=== PATIENT | female | born 1985 | race Caucasian/White ===

== ENCOUNTER 2018-03-20 15:26 | Emergency (ER) | payer BC ==
--- NOTE | 2018-03-20 15:29 | EDM.PDOC ---
ED HPI GENERAL MEDICAL PROBLEM - General Chief Complaint: BACKHOE OPERATOR Problem Stated Complaint: 7 WEEKS PREG. SPOTTING Time Seen by Provider: 03/20/18 15:28 Source of Information: Reports: Patient History Limitations: Reports: No Limitations - History of Present Illness INITIAL COMMENTS - FREE TEXT/NARRATIVE: HISTORY AND PHYSICAL: History of present illness: Patient is a 32-year-old female who presents to the emergency room with complaints of lower abdominal cramping and vaginal bleeding. She states she is approximately weeks and has been following with a provider in [place]. She initially had tried in vitro fertilization, unsuccessful. She did get naturally with her last menstrual period being in January. She does have an initial OB appointment with Dr. Buckley in one week. She states she has had this light spotting over the past days and today seemed heavier and the low abdominal cramping more intense. She denies any recent pelvic activity. Denies any fever, chills, chest pain, shortness of breath or cough. Denies any abdominal pain, vomiting, diarrhea, constipation or dysuria. She has been eating and drinking appropriately. 1, para 0. Review of systems: As per history of present illness and below otherwise all systems reviewed and negative. Past medical history: As per history of present illness and as reviewed below otherwise noncontributory. Surgical history: As per history of present illness and as reviewed below otherwise noncontributory. Social history: See social history for further information Family history: As per history of present illness and as reviewed below otherwise noncontributory. Physical exam: General: Well-developed and well-nourished 32-year-old female. Alert and oriented. Nontoxic appearing and in no acute distress. HEENT: Atraumatic, normocephalic, pupils equal and reactive bilaterally, negative for conjunctival pallor or scleral icterus, mucous membranes moist, TMs normal bilaterally, throat clear, neck supple, nontender, trachea midline. No drooling or trismus noted. No meningeal signs. No hot potato voice noted. Lungs: Clear to auscultation, breath sounds equal bilaterally, chest nontender. Heart: S1S2, regular rate and rhythm without overt murmur Abdomen: Soft, nondistended, mild tenderness to the low abdomen. Negative for masses or hepatosplenomegaly. Negative for costovertebral tenderness. Pelvis: Stable nontender. Genitourinary: This was explained to the patient prior to performing pelvic exam , and sent obtained. International Recruiter at the bedside. External genitalia within normal limits. There is a brown opaque discharge in the vaginal canal. Cervical os is closed. No bleeding noted. Patient tolerated exam well. Rectal: Deferred. Skin: Intact, warm, dry. No lesions or rashes noted. Extremities: Atraumatic, negative for cords or calf pain. Neurovascular unremarkable. Neuro: Awake, alert, oriented. Cranial nerves II through XII unremarkable. Cerebellum unremarkable. Motor and sensory unremarkable throughout. Exam nonfocal. Notes: Patient does have yeast in the urine; will do a swap during pelvic exam. Blood type A negative. Ultrasound shows a single live IUP with the gestational age 7 weeks and 5 days. heart rate 147/m. No wilton-gestational fluid collection. Blood flow to both ovaries. Dr. Buckley, BACKHOE OPERATOR on-call was consulted on this patient. Patient does have an appointment to see her on Wednesday. Dr. Buckley is aware of testing results. Requests RhoGam and Terconazol suppository for her yeast. She states the clinic will call her tomorrow for further follow-up. She does not want follow-up labs at this time as they will do these in the clinic next week. Patient is aware of all testing results. Discussed with appropriate follow-up with her primary BACKHOE OPERATOR. She voices understanding and is agreeable to plan of care. Denies any further questions or concerns at this time. Diagnostics: CBC, CMP, hCG U, quantitative hCG, UA, AB/Rh, OB ultrasound Therapeutics: RhoGam IM Prescription: Terconazole Suppos Augmentin Impression: Threatened miscarriage in early UTI Vaginal Candidiasis Plan: 1. Pelvic rest until cleared by your BACKHOE OPERATOR. 2. Tylenol as needed for pain management. Increase your oral fluids. Take the Terconazole suppository, 1 tab in the vagina before bed 3 days. The oral antibiotic for urinary tract infection is twice daily x 7 days. 3. [facility] will call you on Wednesday for follow-up. Please return to the ED as needed and as discussed. Definitive disposition and diagnosis as appropriate pending reevaluation and review of above. Onset: Today Duration: Day(s): Location: Reports: Pelvis Pelvic Pain Score (Numeric/FACES): 2 - Related Data Allergies Allergy/AdvReac Type Severity Reaction Status Date / Time latex Allergy Rash Verified 03/20/18 15:39 Home Meds: Home Meds . [No Known Home Meds] 03/20/18 [History] ED ROS GENERAL - Review of Systems Review Of Systems: ROS reveals no pertinent complaints other than HPI. ED EXAM - Physical Exam Exam: See Below (See dictation) Course - Vital Signs Last Recorded V/S: Last Vital Signs Temp 97.5 F 03/20/18 15:36 Pulse 90 03/20/18 15:36 Resp 18 03/20/18 15:36 BP 142/97 H 03/20/18 15:36 Pulse Ox 99 03/20/18 15:36 - Orders/Labs/Meds Orders: Active Orders 24 hr Category Date Time Status ABO/RH TYPE [BBK] Stat Lab 03/20/18 15:38 Results ANTIBODY SCREEN (WEST) [BBK] Stat Lab 03/20/18 15:38 Results CULTURE URINE [RM] Stat Lab 03/20/18 15:35 Received RH IMMUNE GLOBULIN [BBK] Stat Lab 03/20/18 15:38 Results Labs: Laboratory Tests 03/20/18 03/20/18 03/20/18 Range/Units 15:35 15:38 15:38 WBC 8.74 (4.0-11.0) K/uL RBC 4.39 (4.30-5.90) M/uL Hgb 13.1 (12.0-16.0) g/dL Hct 38.0 (36.0-46.0) % MCV 86.6 (80.0-98.0) fL MCH 29.8 (27.0-32.0) pg MCHC 34.5 (31.0-37.0) g/dL RDW Std Deviation 39.6 (28.0-62.0) fl RDW Coeff of Sharmila 12 (11.0-15.0) % Plt Count 229 (150-400) K/uL MPV 10.90 (7.40-12.00) fL Neut % (Auto) 65.8 (48.0-80.0) % Lymph % (Auto) 27.6 (16.0-40.0) % [place] % (Auto) 5.3 (0.0-15.0) % Eos % (Auto) 0.8 (0.0-7.0) % Baso % (Auto) 0.5 (0.0-1.5) % Neut # (Auto) 5.8 H (1.4-5.7) K/uL Lymph # (Auto) 2.4 (0.6-2.4) K/uL [place] # (Auto) 0.5 (0.0-0.8) K/uL Eos # (Auto) 0.1 (0.0-0.7) K/uL Baso # (Auto) 0.0 (0.0-0.1) K/uL Nucleated RBC % 0.0 /100WBC Nucleated RBCs # 0 K/uL Sodium 135 L (136-145) mmol/L Potassium 4.1 (3.5-5.1) mmol/L Chloride 102 (98-107) mmol/L Carbon Dioxide 22.8 (21.0-32.0) mmol/L BUN 9 (7.0-18.0) mg/dL Creatinine 0.7 (0.6-1.0) mg/dL Est Cr Clr Drug Dosing 101.90 mL/min Estimated GFR (MDRD) > 60.0 ml/min Glucose 96 (74-106) mg/dL Calcium 9.5 (8.5-10.1) mg/dL Total Bilirubin 0.3 (0.2-1.0) mg/dL AST 17 (15-37) IU/L ALT 35 (14-63) IU/L Alkaline Phosphatase 48 (46-116) U/L Total Protein 8.0 (6.4-8.2) g/dL Albumin 4.0 (3.4-5.0) g/dL Globulin 4.0 (2.6-4.0) g/dL Albumin/Globulin Ratio 1.0 (0.9-1.6) HCG, Quant 429122.0 mIU/mL Urine Color YELLOW Urine Appearance CLEAR Urine pH 6.5 (5.0-8.0) Ur Specific Success 1.010 (1.001-1.035) Urine Protein NEGATIVE (NEGATIVE) mg/dL Urine Glucose (UA) NEGATIVE (NEGATIVE) mg/dL Urine Ketones NEGATIVE (NEGATIVE) mg/dL Urine Occult Blood MODERATE H (NEGATIVE) Urine Nitrite NEGATIVE (NEGATIVE) Urine Bilirubin NEGATIVE (NEGATIVE) Urine Urobilinogen 0.2 (<2.0) EU/dL Ur Leukocyte Esterase SMALL H (NEGATIVE) Urine RBC 1-2 (0-2/HPF) Urine WBC 5-7 (0-5/HPF) Ur Epithelial Cells MODERATE (NONE-FEW) Urine Bacteria FEW (NEGATIVE) Urine Yeast MANY Lisa species DNA (NEGATIVE) Gardnerella DNA Probe (NEGATIVE) Trichomonas DNA Probe (NEGATIVE) Blood Type Antibody Screen 03/20/18 03/20/18 Range/Units 15:38 16:52 WBC (4.0-11.0) K/uL RBC (4.30-5.90) M/uL Hgb (12.0-16.0) g/dL Hct (36.0-46.0) % MCV (80.0-98.0) fL MCH (27.0-32.0) pg MCHC (31.0-37.0) g/dL RDW Std Deviation (28.0-62.0) fl RDW Coeff of Sharmila (11.0-15.0) % Plt Count (150-400) K/uL MPV (7.40-12.00) fL Neut % (Auto) (48.0-80.0) % Lymph % (Auto) (16.0-40.0) % [place] % (Auto) (0.0-15.0) % Eos % (Auto) (0.0-7.0) % Baso % (Auto) (0.0-1.5) % Neut # (Auto) (1.4-5.7) K/uL Lymph # (Auto) (0.6-2.4) K/uL [place] # (Auto) (0.0-0.8) K/uL Eos # (Auto) (0.0-0.7) K/uL Baso # (Auto) (0.0-0.1) K/uL Nucleated RBC % /100WBC Nucleated RBCs # K/uL Sodium (136-145) mmol/L Potassium (3.5-5.1) mmol/L Chloride (98-107) mmol/L Carbon Dioxide (21.0-32.0) mmol/L BUN (7.0-18.0) mg/dL Creatinine (0.6-1.0) mg/dL Est Cr Clr Drug Dosing mL/min Estimated GFR (MDRD) ml/min Glucose (74-106) mg/dL Calcium (8.5-10.1) mg/dL Total Bilirubin (0.2-1.0) mg/dL AST (15-37) IU/L ALT (14-63) IU/L Alkaline Phosphatase (46-116) U/L Total Protein (6.4-8.2) g/dL Albumin (3.4-5.0) g/dL Globulin (2.6-4.0) g/dL Albumin/Globulin Ratio (0.9-1.6) HCG, Quant mIU/mL Urine Color Urine Appearance Urine pH (5.0-8.0) Ur Specific Success (1.001-1.035) Urine Protein (NEGATIVE) mg/dL Urine Glucose (UA) (NEGATIVE) mg/dL Urine Ketones (NEGATIVE) mg/dL Urine Occult Blood (NEGATIVE) Urine Nitrite (NEGATIVE) Urine Bilirubin (NEGATIVE) Urine Urobilinogen (<2.0) EU/dL Ur Leukocyte Esterase (NEGATIVE) Urine RBC (0-2/HPF) Urine WBC (0-5/HPF) Ur Epithelial Cells (NONE-FEW) Urine Bacteria (NEGATIVE) Urine Yeast Lisa species DNA POSITIVE H (NEGATIVE) Gardnerella DNA Probe NEGATIVE (NEGATIVE) Trichomonas DNA Probe NEGATIVE (NEGATIVE) Blood Type A NEGATIVE Antibody Screen NEGATIVE Meds: Medications Discontinued Medications Generic Name Dose Route Start Last Admin Trade Name Freq PRN Reason Stop Dose Admin Amoxicillin/Clavulanate Potassium 1 tab 03/20/18 18:07 Augmentin 500 Mg\125 Mg PO 03/20/18 18:08 ONETIME ONE Rho Immune Globulin 300 mcg 03/20/18 17:04 Rhophylac IM 03/20/18 17:05 ONETIME ONE Departure - Departure Time of Disposition: 18:12 Disposition: Home, Self-Care 01 Clinical Impression: Threatened , Candidiasis, vagina Urinary tract infection Qualifiers: Urinary tract infection type: acute cystitis Hematuria presence: without hematuria Qualified Code(s): N30.00 - Acute cystitis without hematuria - Discharge Information Instructions: Vaginal Yeast Infection, Adult, and Urinary Tract Infection, Threatened Miscarriage, [id number] Referrals: PCP,None [Primary Care Provider] - Forms: ED Department Discharge Additional Instructions: The following information is given to patients seen in the emergency department who are being discharged to home. This information is to outline your options for follow-up care. We provide all patients seen in our emergency department with a follow-up referral. The need for follow-up, as well as the timing and circumstances, are variable depending upon the specifics of your emergency department visit. If you don't have a primary care physician on staff, we will provide you with a referral. We always advise you to contact your personal physician following an emergency department visit to inform them of the circumstance of the visit and for follow-up with them and/or the need for any referrals to a consulting specialist. The emergency department will also refer you to a specialist when appropriate. This referral assures that you have the opportunity for follow-up care with a specialist. All of these measure are taken in an effort to provide you with optimal care, which includes your follow-up. Under all circumstances we always encourage you to contact your private physician who remains a resource for coordinating your care. When calling for follow-up care, please make the office aware that this follow-up is from your recent emergency room visit. If for any reason you are refused follow-up, please contact the Emergency Department at and asked to speak to the emergency department charge nurse. Primary Care [address] [place] [id number] [facility] [address] [place] [phone] [facility] [address] [place] [id number] 1. Pelvic rest until cleared by your BACKHOE OPERATOR. 2. Tylenol as needed for pain management. Increase your oral fluids. Take the Terconazole suppository, 1 tab in the vagina before bed 3 days. The oral antibiotic for urinary tract infection is twice daily x 7 days. 3. [facility] will call you on Wednesday for follow-up. Please return to the ED as needed and as discussed. - My Orders Last 24 Hours: My Active Orders 03/20/18 15:35 CULTURE URINE [RM] Stat 03/20/18 15:38 ABO/RH TYPE [BBK] Stat ANTIBODY SCREEN (WEST) [BBK] Stat RH IMMUNE GLOBULIN [BBK] Stat - Assessment/Plan Last 24 Hours: My Active Orders 03/20/18 15:35 CULTURE URINE [RM] Stat 03/20/18 15:38 ABO/RH TYPE [BBK] Stat ANTIBODY SCREEN (WEST) [BBK] Stat RH IMMUNE GLOBULIN [BBK] Stat
[2018-03-20 16:25] LABS: CHLORIDE,CL 102 mmol/L (98-107); SODIUM,NA 135 mmol/L (136-145)
--- NOTE | 2018-03-20 16:53 | US ---
HISTORY: Vaginal bleeding and pelvic cramping. First trimester . TECHNIQUE: Ultrasound of the pelvis using transabdominal and transvaginal techniques. Color and spectral Doppler evaluation of both ovaries. COMPARISON: None. FINDINGS: Single intrauterine gestational sac. Mean sac diameter of 25 mm corresponds to estimated gestational age 7 weeks 5 days. pole within the gestational sac. Revillo-rump length of 10 mm corresponds to estimated gestational age 7 weeks 0 days. cardiac activity is present with heart rate of 147 beats per minute. 2 mm yolk sac. No perigestational fluid collection. Right ovary measures 4.6 x 3.9 x 3.7 cm. 4.3 x 3.4 x 3.8 cm anechoic cyst in the right ovary. Blood flow present in the right ovary with normal arterial and venous spectral Doppler waveforms. Left ovary measures 3.4 x 1.9 x 2.3 cm. 2 x 1.6 x 1.9 cm corpus luteum cyst in the left ovary. Blood flow present in the left ovary with normal arterial and venous spectral Doppler waveforms. IMPRESSION: 1. Single live intrauterine gestation with estimated gestational age 7 weeks 0 days. 2. No perigestational fluid collection. 3. Blood flow present in both ovaries. Dictated by Matt Brasher MD @ Mar 20 2018 4:48PM Signed by Dr. Matt Brasher @ Mar 20 2018 4:53PM
[2018-03-20] MEDS ORDERED: Amoxicillin/Clavulanate K 500-125 MG Tab PO ONE (18:07)
[2018-03-20] MEDS: Rho(D) Immune Globulin 300 MCG/2 ML Syringe IM ONE ×2 (18:43→18:45)
== END 2018-03-20 18:55 | disposition home or self-care (01) ==
LOC: MW.ED 15:26
DX: O20.0 Threatened abortion (principal); O23.41 Unspecified infection of urinary tract in pregnancy, first trimester; O98.811 Other maternal infectious and parasitic diseases complicating pregnancy, first trimester; Z3A.01 Less than 8 weeks gestation of pregnancy; N93.9 Abnormal uterine and vaginal bleeding, unspecified; B37.3 Candidiasis of vulva and vagina
CPT/HCPCS: 36415; 76801; 80053; 81001; 84702; 85025; 86850; 86900; 86901; 87086; 87480; 87510; 87660; 99284; A9270; J2792; J2791

== ENCOUNTER 2018-11-05 03:28 | Inpatient (IN) | payer BC ==
[2018-11-05] MEDS ORDERED: Sodium Chloride 0.9% 10 ML SDV IV PRN (07:36)
[2018-11-05] MEDS ORDERED: Methylergonovine 0.2 MG/1 ML Amp IM PRN (07:36)
[2018-11-05] MEDS ORDERED: Lidocaine 1% 50 ML MDV INJECT PRN (07:36)
[2018-11-05] MEDS ORDERED: Butorphanol 1 MG/ML SDV IVPUSH PRN (07:36)
[2018-11-05] MEDS ORDERED: Nalbuphine 10 MG/1 ML Vial IVPUSH PRN (07:36)
[2018-11-05] MEDS ORDERED: Sodium Chloride 0.9% 10 ML Syringe FLUSH PRN (07:36)
[2018-11-05] MEDS ORDERED: Sodium Chloride 0.9% 2.5 ML Syringe FLUSH PRN (07:36)
[2018-11-05] MEDS ORDERED: Carboprost Tromethamine 250 MCG/1 ML Amp IM PRN (07:36)
[2018-11-05] MEDS ORDERED: Tranexamic Acid 1,000 MG in Sodium Chloride 0.9% 100 ML IV PRN (07:36)
[2018-11-05] MEDS ORDERED: Ondansetron 4 MG/2 ML SDV IVPUSH PRN (07:36)
[2018-11-05] MEDS ORDERED: Misoprostol 200 MCG Tab PO PRN (07:36)
[2018-11-05] MEDS ORDERED: Water For Irrigation,Sterile 1,000 ML Container IRR PRN (07:36)
[2018-11-05] MEDS ORDERED: Oxytocin/0.9 % Sodium Chloride 30 UNIT/500 ML BAG IV SCH ×2 (07:45→13:30)
[2018-11-05] MEDS: Lactated Ringers 1,000 ML IV SCH ×4 (08:12→15:25)
--- NOTE | 2018-11-05 09:40 | PCM.PREANE ---
Preanesthetic Assessment - Anesthesia/Transfusion/Family Hx Anesthesia History: No Prior Anesthesia Family History of Anesthesia Reaction: No - Physical Assessment ASA Class: 1 Mental Status: Alert & Oriented x3 Dentition: Reports: Normal Dentition - Lab Values: Laboratory Last Values WBC 14.11 K/uL (4.0-11.0) H 11/05/18 07:58 RBC 3.89 M/uL (4.30-5.90) L 11/05/18 07:58 Hgb 12.2 g/dL (12.0-16.0) 11/05/18 07:58 Hct 35.6 % (36.0-46.0) L 11/05/18 07:58 MCV 91.5 fL (80.0-98.0) 11/05/18 07:58 MCH 31.4 pg (27.0-32.0) 11/05/18 07:58 MCHC 34.3 g/dL (31.0-37.0) 11/05/18 07:58 RDW Std Deviation 45.8 fl (28.0-62.0) 11/05/18 07:58 RDW Coeff of Sharmila 14 % (11.0-15.0) 11/05/18 07:58 Plt Count 211 K/uL (150-400) 11/05/18 07:58 MPV 12.40 fL (7.40-12.00) H 11/05/18 07:58 Nucleated RBC % 0.0 /100WBC 11/05/18 07:58 Nucleated RBCs # 0 K/uL 11/05/18 07:58 - Allergies Allergies/Adverse Reactions: Allergies Allergy/AdvReac Type Severity Reaction Status Date / Time latex Allergy Rash Verified 03/20/18 15:39 - Acknowledgements Anesthesia Type Planned: Epidural Pt an Appropriate Candidate for the Planned Anesthesia: Yes Alternatives and Risks of Anesthesia Discussed w Pt/Guardian: Yes Pt/Guardian Understands and Agrees with Anesthesia Plan: Yes PreAnesthesia Questionnaire GEOSPATIAL ANALYST History: Reports: Other (See Below) Other OB/BYN History: IVF - Infectious Disease History Infectious Disease History: Reports: Chicken Pox - HOME MEDS Home Medications: Home Meds . [No Known Home Meds] 03/20/18 [History] - CURRENT (IN HOUSE) MEDS Current Meds: Current Medications Butorphanol Tartrate (Stadol) 1 mg IVPUSH Q1H PRN PRN Reason: Pain Carboprost Tromethamine (Hemabate Ds) 250 mcg IM ASDIRECTED PRN PRN Reason: Post Hemorrhage Tranexamic Acid 1,000 mg/ (Sodium Chloride) 110 mls @ 660 mls/hr IV ONETIME PRN PRN Reason: Bleeding Lactated Ringer's (Ringers, Lactated) 1,000 mls @ 150 mls/hr IV ASDIRECTED [facility] Last Admin: 11/05/18 09:14 Dose: 999 mls/hr Oxytocin/Sodium Chloride (Oxytocin 30 Unit/500 Ml-Ns) 30 unit in 500 mls @ 999 mls/hr IV TITRATE [facility] Lidocaine HCl (Xylocaine 1%) 50 ml INJECT ONETIME PRN PRN Reason: Laceration repair Methylergonovine Maleate (Methergine) 0.2 mg IM ASDIRECTED PRN PRN Reason: Post Hemorrhage Misoprostol (Cytotec) 200 mcg PO ONETIME PRN PRN Reason: Post Hemorrhage Nalbuphine HCl (Nubain) 10 mg IVPUSH Q1H PRN PRN Reason: Pain (severe 7-10) Ondansetron HCl (Zofran) 4 mg IVPUSH Q6H PRN PRN Reason: Nausea/Vomiting Sodium Chloride (Saline Flush) 10 ml FLUSH ASDIRECTED PRN PRN Reason: Keep Vein Open Sodium Chloride (Saline Flush) 2.5 ml FLUSH ASDIRECTED PRN PRN Reason: Keep Vein Open Sodium Chloride (Normal Saline) 10 ml IV ASDIRECTED PRN PRN Reason: IV Use Sterile Water (Sterile Water For Irrigation) 1,000 ml IRR ASDIRECTED PRN PRN Reason: delivery
--- NOTE | 2018-11-05 09:44 | PCM.PRNOTE ---
- Free Text/Narrative Note: Anes Note Patietn requests epidural for L&D. Sitting position. Level L3-L4. Chloraprep to lumbar area. Midline approach. Epidural space easily achieved single attempt with ease. STEPHEN at 4 cm. Cath threaded 5 cm with ease. Test dose 0917 3 cc 1.5% selwyn with epi negative Loading dose 0919 10 cc 0.2% ropivicaine with 1 mcg cc fentanyl in slow divided doses. Pump started 0922 same solution at 8 cc hr with 6 cc q 20 min prn bolus. Time with patient [id number] Shon Gonzales CRNA
[2018-11-05] MEDS ORDERED: Aluminum Hydroxide/Magnesium Hydroxide/Simethicone Susp 30 ML Cup PO PRN (18:16)
[2018-11-05] MEDS ORDERED: Ibuprofen 400 MG Tab PO PRN (18:16)
[2018-11-05] MEDS ORDERED: Lanolin 100% Cream 7 GM Tube TOP PRN (18:16)
[2018-11-05] MEDS ORDERED: Acetaminophen 500 MG Tab PO PRN ×2 (18:16)
[2018-11-05] MEDS ORDERED: Benzocaine/Menthol 20%-0.5% Spray 78 GM Cannister TOP PRN (18:16)
[2018-11-05] MEDS ORDERED: Bisacodyl 10 MG Supp RECTAL PRN (18:16)
[2018-11-05] MEDS ORDERED: oxyCODONE 5 MG Tab PO PRN (18:16)
[2018-11-05] MEDS ORDERED: Docusate Sodium 100 MG Cap PO PRN (18:16)
--- NOTE | 2018-11-06 00:52 | OR ---
SURGEON: Rosario Buckley M.D. DATE OF PROCEDURE: 11/05/2018 PREOPERATIVE DIAGNOSES: 1. 39 and 6 week intrauterine . 2. Labor. 3. Abnormal heart tones. POSTOPERATIVE DIAGNOSES: 1. 39 and 6 week intrauterine . 2. Labor. 3. Abnormal heart tones. PROCEDURES PERFORMED: Vacuum-assisted vaginal delivery, second-degree midline laceration repaired. PRIMARY SURGEON: Rosario Buckley MD. FILM HISTORIAN: Stanislaw Benton MS4. ANESTHESIA: Epidural. ESTIMATED BLOOD LOSS: 400 mL. COMPLICATIONS: None. FINDINGS: Viable male. 7 at 1 minute, and 9 at 5 minutes. Weight of 7 pounds 12 ounces. Spontaneous delivery, intact placenta, 3-vessel cord. DISPOSITION: to nursery, mom in LDRP, stable. PROCEDURE DETAILS: Shari is a 32-year-old G1, P0 at 39 and 6 weeks' gestational age, who was admitted on the morning of 11/05/2018 with regular contractions. She did make cervical change from 2 to 3 cm to 4 cm upon monitoring. Upon admission, patient had underwent routine labs, IV hydration, underwent amniotomy. Clear fluid was returned after she had her bright light exam. She had been on valacyclovir prophylaxis since 34 weeks. She denies any prodromal herpetic symptoms and no active herpetic lesions were visualized on her bright light exam of the vulva. After amniotomy was performed which returned clear fluid, the patient became increasingly uncomfortable and underwent regional anesthesia from epidural. At that time, she was found to be approximately 7 cm dilated, became more comfortable; however, the contractions did significantly space out to approximately every 6 to 8 minutes making really no cervical change. Therefore, a Pitocin augmentation was administered. During this time interval, patient began having some episodes of recurrent decelerations, at times prolonged decelerations . Did respond to repositioning, oxygen administration, IV fluid hydration with discontinuation of Pitocin. An IUPC was placed and FSE was placed. Joiner had been placed to gravity. With recovery, was able to resume Pitocin and the patient actually began making more rapid change thereafter. Was able to progress to complete, 100% effaced and +2 station, began pushing efforts on the left and right lateral side. Once to a +3 station, was able to be in modified dorsal lithotomy position. However, there was still variable decelerations to the 60s to 70s with pushing efforts. With slow return to baseline, I shifted the baseline to the 150s from the 140s. Given these prolonged variable decelerations with slow return to baseline, discussed operative vaginal delivery with the patient. Jluis has been performed, which is approximately 3500 g, cephalic presentation with AFSHIN position. Sagittal sutures were able to be palpated. The bladder is drained. The risks of the procedure have been discussed with the patient and her , including increased risk for maternal vaginal trauma, cephalohematoma, and intracranial bleeding. They voiced understanding and they agreed to proceed with operative vaginal delivery. Carton Filling Machine Operator and nursing food checkers and cashiers supervisor have been notified. Respiratory Therapy was also present for delivery. I was able to palpate suture lines once again, placed the vacuum keeping these in mind, and with the next contraction was able to insufflate the vacuum to the green zone and assisted with pushing efforts. The vacuum was released between contractions. With the next contraction, was able to push. There was a single pop-off that occurred. The head was delivered to a +4 station. Vacuum was released. Head was delivered followed by anterior shoulder, posterior shoulder, remainder of body. There was a loose nuchal cord x1 noted, this was reduced manually. The infant's oropharynx and nares bulb suctioned. was crying and was able to be handed off to mother with attending physician and nursing staff at her side. After delay, cord was clamped x2 and cut. Cord arterial, cord venous, cord blood sampling were obtained. Light pressure applied while the placenta was delivered spontaneously intact. Vigorous fundal uterine massage was then applied while 30 units of Pitocin was delivered in 500 mL of IV fluid. Upon inspection of cervix, vaginal sidewalls, and perineum, there was found to be a deep second-degree midline laceration present. The deeper edges are repaired using 3-0 Vicryl with [id number] sutures x3, followed by repair of the remainder of the second-degree midline laceration in the usual fashion. Uterus remained firm. Sponge, instrument, and needle counts was correct. The patient remained in LDRP, in nursery. GIULIANA / CHANDAN /[id number]
[2018-11-06] MEDS: Ibuprofen 800 MG Tab PO PRN ×2 (02:37→14:55)
[2018-11-06] MEDS: Witch Hazel Medicated Pads 40/Jar TOP PRN (02:39)
--- NOTE | 2018-11-06 07:28 | PCM.POSTAN ---
POST ANESTHESIA ASSESSMENT - MENTAL STATUS Mental Status: Alert - VITAL SIGNS Vital Signs: Last Vital Signs Temp 36.4 C 11/06/18 04:50 Pulse 70 11/06/18 04:50 Resp 17 11/06/18 04:50 BP 109/63 11/06/18 04:50 Pulse Ox 99 11/06/18 04:50 - RESPIRATORY Respiratory Status: Respiratory Rate WNL - CARDIOVASCULAR CV Status: Pulse Rate WNL - GASTROINTESTINAL GI Status: No Symptoms - POST OP HYDRATION Hydration Status: Adequate & Stable
--- NOTE | 2018-11-06 07:28 | PCM48HPAN ---
Post Anesthesia Note - EVALUATION WITHIN 48HRS OF ANESTHETIC Vital Signs in Normal Range: Yes Patient Participated in Evaluation: Yes Respiratory Function Stable: Yes Airway Patent: Yes Cardiovascular Function Stable: Yes Hydration Status Stable: Yes Pain Control Satisfactory: Yes Nausea and Vomiting Control Satisfactory: Yes Mental Status Recovered: Yes Vital Signs: Last Vital Signs Temp 36.4 C 11/06/18 04:50 Pulse 70 11/06/18 04:50 Resp 17 11/06/18 04:50 BP 109/63 11/06/18 04:50 Pulse Ox 99 11/06/18 04:50
--- NOTE | 2018-11-06 10:14 | PCM.PNPP ---
- General Info Date of Service: 11/06/18 Functional Status: Reports: Pain Controlled, Tolerating Diet, Ambulating, Urinating - Review of Systems General: Reports: Fatigue. Denies: Fever, Weakness Pulmonary: Denies: Shortness of Breath Cardiovascular: Denies: Chest Pain, Palpitations, Lightheadedness Gastrointestinal: Denies: Abdominal Pain, Nausea, Vomiting Genitourinary: Denies: Flank Pain Musculoskeletal: Reports: No Symptoms Skin: Reports: No Symptoms Neurological: Reports: No Symptoms Psychiatric: Reports: No Symptoms - General Info Date of Service: 11/06/18 - Patient Data Vital Signs - Most Recent: Last Vital Signs Temp 36.4 C 11/06/18 04:50 Pulse 70 11/06/18 04:50 Resp 17 11/06/18 04:50 BP 109/63 11/06/18 04:50 Pulse Ox 99 11/06/18 04:50 Lab Results - Last 24 Hours: Laboratory Results - last 24 hr 11/05/18 11/05/18 11/06/18 Range/Units 07:58 17:55 06:15 Hgb 9.2 L (12.0-16.0) g/dL Hct 26.7 L (36.0-46.0) % Cord ABG pH 7.211 (7.18-7.38) Cord ABG Base Excess -9 (-10--2) Cord VBG pH 7.330 (7.25-7.45) Cord VBG Base Excess -8 (-10--2) Blood Type A NEGATIVE Antibody Screen NEGATIVE Med Orders - Current: Current Medications Acetaminophen (Tylenol Extra Strength) 500 mg PO Q4H PRN PRN Reason: Pain Acetaminophen (Tylenol Extra Strength) 1,000 mg PO Q4H PRN PRN Reason: Pain Last Admin: 11/06/18 02:38 Dose: 1,000 mg Al Hydroxide/Mg Hydroxide (Mag-Al Plus) 30 ml PO Q8H PRN PRN Reason: Heartburn Benzocaine/Menthol (Dermoplast Pain Relief 20%-0.5% [place]) 0 gm TOP ASDIRECTED PRN PRN Reason: Perineal Comfort Measure Last Admin: 11/06/18 02:38 Dose: 1 spray Bisacodyl (Dulcolax) 10 mg RECTAL ONETIME PRN PRN Reason: Constipation Carboprost Tromethamine (Hemabate Ds) 250 mcg IM ASDIRECTED PRN PRN Reason: Post Hemorrhage Docusate Sodium (Colace) 100 mg PO BID PRN PRN Reason: Constipation Emollient Ointment (Lansinoh Hpa) 0 gm TOP ASDIRECTED PRN PRN Reason: Sore Nipples Tranexamic Acid 1,000 mg/ (Sodium Chloride) 110 mls @ 660 mls/hr IV ONETIME PRN PRN Reason: Bleeding Lactated Ringer's (Ringers, Lactated) 1,000 mls @ 150 mls/hr IV ASDIRECTED TAN Last Admin: 11/05/18 15:25 Dose: 150 mls/hr Oxytocin/Sodium Chloride (Oxytocin 30 Unit/500 Ml-Ns) 30 unit in 500 mls @ 999 mls/hr IV TITRATE TAN Oxytocin/Sodium Chloride (Oxytocin 30 Unit/500 Ml-Ns) 30 unit in 500 mls @ 2 mls/hr IV TITRATE TAN; Protocol Last Infusion: 11/05/18 17:06 Dose: 3 munits/min, 3 mls/hr Ibuprofen (Motrin) 400 mg PO Q4H PRN PRN Reason: Pain Ibuprofen (Motrin) 800 mg PO Q6H PRN PRN Reason: Pain Last Admin: 11/06/18 02:37 Dose: 800 mg Lidocaine HCl (Xylocaine 1%) 50 ml INJECT ONETIME PRN PRN Reason: Laceration repair Methylergonovine Maleate (Methergine) 0.2 mg IM ASDIRECTED PRN PRN Reason: Post Hemorrhage Nalbuphine HCl (Nubain) 10 mg IVPUSH Q1H PRN PRN Reason: Pain (severe 7-10) Ondansetron HCl (Zofran) 4 mg IVPUSH Q6H PRN PRN Reason: Nausea/Vomiting Oxycodone HCl (Oxycodone) 5 mg PO Q2H PRN PRN Reason: Pain Sodium Chloride (Saline Flush) 10 ml FLUSH ASDIRECTED PRN PRN Reason: Keep Vein Open Sodium Chloride (Saline Flush) 2.5 ml FLUSH ASDIRECTED PRN PRN Reason: Keep Vein Open Sodium Chloride (Normal Saline) 10 ml IV ASDIRECTED PRN PRN Reason: IV Use Sterile Water (Sterile Water For Irrigation) 1,000 ml IRR ASDIRECTED PRN PRN Reason: delivery Witch Rand (Tucks) 1 pad TOP ASDIRECTED PRN PRN Reason: comfort care Last Admin: 11/06/18 02:39 Dose: 1 pad Discontinued Medications Butorphanol Tartrate (Stadol) 1 mg IVPUSH Q1H PRN PRN Reason: Pain Misoprostol (Cytotec) 200 mcg PO ONETIME PRN PRN Reason: Post Hemorrhage - Infant Interaction Support Person: - Exam General: Alert, Oriented Lungs: Normal Respiratory Effort Cardiovascular: Regular Rate, Regular Rhythm GI/Abdominal Exam: Soft, Non-Tender Extremities: Pedal Edema (trace). No: Park's Sign Skin: Warm, Dry, Intact Neurological: No New Focal Deficit Psy/Mental Status: Alert, Normal Affect, Normal Mood - Problem List & Annotations (1) Vaginal delivery SNOMED Code(s): 974101878 Code(s): O80 - ENCOUNTER FOR FULL-TERM UNCOMPLICATED DELIVERY Status: Acute Current Visit: Yes - Problem List Review Problem List Initiated/Reviewed/Updated: Yes - My Orders Last 24 Hours: My Active Orders 11/05/18 13:30 Oxytocin/0.9 % Sodium Chloride [Oxytocin 30 Unit/500 ML-NS] 30 unit in 500 ml IV TITRATE 11/05/18 18:16 Patient Status [ADT] Routine May Shower [RC] ASDIRECTED Up ad Sandhya [RC] ASDIRECTED Vital Signs [RC] PER UNIT ROUTINE Acetaminophen [Tylenol Extra Strength] 1,000 mg PO Q4H PRN Acetaminophen [Tylenol Extra Strength] 500 mg PO Q4H PRN Alum Hydrox/Mag Hydrox/Simeth [Mag-Al Plus] 30 ml PO Q8H PRN Benzocaine/Menthol [Dermoplast Pain Relief 20%-0.5% [place]] 0 gm TOP ASDIRECTED PRN Bisacodyl [Dulcolax] 10 mg RECTAL ONETIME PRN Docusate Sodium [Colace] 100 mg PO BID PRN Ibuprofen [Motrin] 400 mg PO Q4H PRN Ibuprofen [Motrin] 800 mg PO Q6H PRN Lanolin [Lansinoh HPA] See Dose Instructions TOP ASDIRECTED PRN Witch Rand [Tucks] 1 pad TOP ASDIRECTED PRN oxyCODONE 5 mg PO Q2H PRN Assess Lochia [WOMSER] Per Unit Routine Assess Uterine Involution [WOMSER] Per Unit Routine Peripheral IV Discontinue [OM.PC] Routine 11/05/18 18:17 Ice Therapy [OM.PC] Per Unit Routine Perineal Care [OM.PC] Per Unit Routine Sitz Bath [OM.PC] Per Unit Routine 11/05/18 Dinner Regular Diet [DIET] - Assessment Assessment:: PPD 1 status post VAVD/2nd MLL repaired - Plan Plan:: Patient doing well overall. Continue PP cares.
[2018-11-07] MEDS: Ibuprofen 800 MG Tab PO PRN (01:33)
[2018-11-07] MEDS: Witch Hazel Medicated Pads 40/Jar TOP PRN (06:34)
--- NOTE | 2018-11-07 08:07 | PCM.PNPP ---
- General Info Date of Service: 11/07/18 Functional Status: Reports: Pain Controlled, Tolerating Diet, Ambulating, Urinating - Review of Systems General: Reports: Fatigue. Denies: Fever, Weakness Pulmonary: Denies: Shortness of Breath Cardiovascular: Denies: Chest Pain, Palpitations, Lightheadedness Gastrointestinal: Denies: Abdominal Pain, Nausea, Vomiting Genitourinary: Denies: Flank Pain Musculoskeletal: Reports: No Symptoms Skin: Reports: No Symptoms Neurological: Reports: No Symptoms Psychiatric: Reports: No Symptoms - General Info Date of Service: 11/07/18 - Patient Data Vital Signs - Most Recent: Last Vital Signs Temp 36.8 C 11/07/18 06:30 Pulse 62 11/07/18 06:30 Resp 16 11/07/18 06:30 BP 119/82 11/07/18 06:30 Pulse Ox 98 11/07/18 06:30 Med Orders - Current: Current Medications Acetaminophen (Tylenol Extra Strength) 500 mg PO Q4H PRN PRN Reason: Pain Acetaminophen (Tylenol Extra Strength) 1,000 mg PO Q4H PRN PRN Reason: Pain Last Admin: 11/06/18 02:38 Dose: 1,000 mg Al Hydroxide/Mg Hydroxide (Mag-Al Plus) 30 ml PO Q8H PRN PRN Reason: Heartburn Last Admin: 11/06/18 14:55 Dose: 30 ml Benzocaine/Menthol (Dermoplast Pain Relief 20%-0.5% [place]) 0 gm TOP ASDIRECTED PRN PRN Reason: Perineal Comfort Measure Last Admin: 11/06/18 02:38 Dose: 1 spray Bisacodyl (Dulcolax) 10 mg RECTAL ONETIME PRN PRN Reason: Constipation Carboprost Tromethamine (Hemabate Ds) 250 mcg IM ASDIRECTED PRN PRN Reason: Post Hemorrhage Docusate Sodium (Colace) 100 mg PO BID PRN PRN Reason: Constipation Emollient Ointment (Lansinoh Hpa) 0 gm TOP ASDIRECTED PRN PRN Reason: Sore Nipples Tranexamic Acid 1,000 mg/ (Sodium Chloride) 110 mls @ 660 mls/hr IV ONETIME PRN PRN Reason: Bleeding Lactated Ringer's (Ringers, Lactated) 1,000 mls @ 150 mls/hr IV ASDIRECTED TAN Last Admin: 11/05/18 15:25 Dose: 150 mls/hr Oxytocin/Sodium Chloride (Oxytocin 30 Unit/500 Ml-Ns) 30 unit in 500 mls @ 999 mls/hr IV TITRATE TAN Oxytocin/Sodium Chloride (Oxytocin 30 Unit/500 Ml-Ns) 30 unit in 500 mls @ 2 mls/hr IV TITRATE TAN; Protocol Last Infusion: 11/05/18 17:06 Dose: 3 munits/min, 3 mls/hr Ibuprofen (Motrin) 400 mg PO Q4H PRN PRN Reason: Pain Ibuprofen (Motrin) 800 mg PO Q6H PRN PRN Reason: Pain Last Admin: 11/07/18 01:33 Dose: 800 mg Lidocaine HCl (Xylocaine 1%) 50 ml INJECT ONETIME PRN PRN Reason: Laceration repair Methylergonovine Maleate (Methergine) 0.2 mg IM ASDIRECTED PRN PRN Reason: Post Hemorrhage Nalbuphine HCl (Nubain) 10 mg IVPUSH Q1H PRN PRN Reason: Pain (severe 7-10) Ondansetron HCl (Zofran) 4 mg IVPUSH Q6H PRN PRN Reason: Nausea/Vomiting Oxycodone HCl (Oxycodone) 5 mg PO Q2H PRN PRN Reason: Pain Sodium Chloride (Saline Flush) 10 ml FLUSH ASDIRECTED PRN PRN Reason: Keep Vein Open Sodium Chloride (Saline Flush) 2.5 ml FLUSH ASDIRECTED PRN PRN Reason: Keep Vein Open Sodium Chloride (Normal Saline) 10 ml IV ASDIRECTED PRN PRN Reason: IV Use Sterile Water (Sterile Water For Irrigation) 1,000 ml IRR ASDIRECTED PRN PRN Reason: delivery Witch Rand (Tucks) 1 pad TOP ASDIRECTED PRN PRN Reason: comfort care Last Admin: 11/07/18 06:34 Dose: 1 pad Discontinued Medications Butorphanol Tartrate (Stadol) 1 mg IVPUSH Q1H PRN PRN Reason: Pain Misoprostol (Cytotec) 200 mcg PO ONETIME PRN PRN Reason: Post Hemorrhage - Infant Interaction Support Person: - Recovery Exam Fundal Tone: Firm Fundal Level: 1 Fingerbreadths Below Umbilicus Fundal Placement: Midline Lochia Amount: Scant Lochia Color: Rubra/Red Perineum Description: Edematous, Other (see below) Other Perinuem Description: 2nd degree repaired laceration Episiotomy/Laceration: Approximated Bladder Status: Voiding Urinary Elimination: Voided - Exam General: Alert, Oriented Lungs: Normal Respiratory Effort Cardiovascular: Regular Rate, Regular Rhythm GI/Abdominal Exam: Normal Bowel Sounds, Soft Extremities: Pedal Edema (trace). No: Park's Sign Skin: Warm, Dry, Intact Neurological: No New Focal Deficit Psy/Mental Status: Alert, Normal Affect, Normal Mood - Problem List & Annotations (1) Vaginal delivery SNOMED Code(s): 090923827 Code(s): O80 - ENCOUNTER FOR FULL-TERM UNCOMPLICATED DELIVERY Status: Acute Current Visit: Yes - Problem List Review Problem List Initiated/Reviewed/Updated: Yes - My Orders Last 24 Hours: My Active Orders 11/07/18 08:05 Ready for Discharge [RC] PER UNIT ROUTINE - Assessment Assessment:: PPD 2 status post VAVD/2nd MLL repaired - Plan Plan:: Doing well overall. Working with .Ready to go home today. Discharge to home. Follow up at [facility] 6 weeks. Infection and bleeding warnings reviewed. Discharge instructions reviewed.
== END 2018-11-07 12:15 | disposition home or self-care (01) | DRG 560 ==
LOC: MW.OBCHECK 03:28 → MW.OB 03:29 → MW.OBCHECK 03:29 → MW.OB 03:31 → OBSVTOIN 17:55 → MW.OB 21:00
PROVIDERS: ADMIT Obstetrics & Gynecology; ATTEND Obstetrics & Gynecology
PROC: 10D07Z6 Extraction of Products of Conception, Vacuum, Via Natural or Artificial Opening (ICD-10-PCS; principal; 2018-11-05)
PROC: 10907ZC Drainage of Amniotic Fluid, Therapeutic from Products of Conception, Via Natural or Artificial Opening (ICD-10-PCS; 2018-11-05)
PROC: 0KQM0ZZ Repair Perineum Muscle, Open Approach (ICD-10-PCS; 2018-11-05)
PROC: 3E0R3BZ Introduction of Anesthetic Agent into Spinal Canal, Percutaneous Approach (ICD-10-PCS; 2018-11-05)
PROC: 00HU33Z Insertion of Infusion Device into Spinal Canal, Percutaneous Approach (ICD-10-PCS; 2018-11-05)
PROC: 10H07YZ Insertion of Other Device into Products of Conception, Via Natural or Artificial Opening (ICD-10-PCS; 2018-11-05)
PROC: 10H073Z Insertion of Monitoring Electrode into Products of Conception, Via Natural or Artificial Opening (ICD-10-PCS; 2018-11-05)
DX: O76 Abnormality in fetal heart rate and rhythm complicating labor and delivery (principal); Z3A.39 39 weeks gestation of pregnancy; Z37.0 Single live birth; O69.81X0 Labor and delivery complicated by cord around neck, without compression, not applicable or unspecified; O70.1 Second degree perineal laceration during delivery
CPT/HCPCS: 36415; 51702; 59025; 59409; 82803; 85014; 85018; 85027; 86850; 86900; 86901; A9270-GY; J2590; J7120

== ENCOUNTER 2020-05-20 20:03 | Inpatient (IN) | payer OTHER ==
[2020-05-20] MEDS ORDERED: Sodium Chloride 0.9% 10 ML Syringe FLUSH PRN (21:39)
[2020-05-20] MEDS ORDERED: Butorphanol 1 MG/ML SDV IVPUSH PRN (21:39)
[2020-05-20] MEDS ORDERED: Nalbuphine 10 MG/1 ML Vial IVPUSH PRN (21:39)
[2020-05-20] MEDS ORDERED: Tranexamic Acid 1,000 MG in Sodium Chloride 0.9% 100 ML IV PRN (21:39)
[2020-05-20] MEDS ORDERED: Sodium Chloride 0.9% 10 ML SDV IV PRN (21:39)
[2020-05-20] MEDS ORDERED: Lidocaine 1% 50 ML MDV INJECT PRN (21:39)
[2020-05-20] MEDS ORDERED: Carboprost Tromethamine 250 MCG/1 ML Amp IM PRN (21:39)
[2020-05-20] MEDS ORDERED: Misoprostol 200 MCG Tab PO PRN (21:39)
[2020-05-20] MEDS ORDERED: Sodium Chloride 0.9% 2.5 ML Syringe FLUSH PRN (21:39)
[2020-05-20] MEDS ORDERED: Methylergonovine 0.2 MG/1 ML Amp IM PRN (21:39)
[2020-05-20] MEDS ORDERED: Water For Irrigation,Sterile 1,000 ML Container IRR PRN (21:39)
[2020-05-20] MEDS ORDERED: Ondansetron 4 MG/2 ML SDV IVPUSH PRN (21:39)
[2020-05-20] MEDS ORDERED: Lactated Ringers 1,000 ML IV SCH (21:45)
[2020-05-20] MEDS ORDERED: Oxytocin/0.9 % Sodium Chloride 30 UNIT/500 ML BAG IV SCH (21:45)
[2020-05-20] MEDS ORDERED: Docusate Sodium 100 MG Cap PO PRN (23:39)
[2020-05-20] MEDS ORDERED: Lanolin 100% Cream 7 GM Tube TOP PRN (23:39)
[2020-05-20] MEDS ORDERED: oxyCODONE 5 MG Tab PO PRN (23:39)
[2020-05-20] MEDS ORDERED: Acetaminophen 500 MG Tab PO PRN (23:39)
[2020-05-20] MEDS ORDERED: Bisacodyl 10 MG Supp RECTAL PRN (23:39)
[2020-05-20] MEDS ORDERED: Benzocaine/Menthol 20%-0.5% Spray 78 GM Cannister TOP PRN (23:39)
[2020-05-20] MEDS ORDERED: Ibuprofen 400 MG Tab PO PRN (23:39)
[2020-05-20] MEDS ORDERED: Witch Hazel Medicated Pads 40/Jar TOP PRN (23:39)
--- NOTE | 2020-05-20 23:50 | PCM.LDHP ---
L&D History of Present Illness - General Date of Service: 05/20/20 Admit Problem/Dx: Patient Status Order with Admit Dx/Problem 05/20/20 20:14 Patient Status [ADT] Routine 05/20/20 21:39 Patient Status [ADT] Routine 05/20/20 23:39 Patient Status [ADT] Routine Admission Diagnosis/Problem Admission Diagnosis/Problem - History of Present Illness Introduction:: 34yo at 40w0d presenting with labor. Patient has been ethan for the past few hours, now is stronger and every 2-3min. Denies loss of fluid and vaginal bleeding. +FM. BARBY 05/20/2020. was complicated by HSV2, on valtrex for suppression since 36 weeks. Denies any active lesion or prodromal symptoms currently. She otherwise had uncomplicated , is GBS negative. Blood type is A negative, received Rhogam at 28 weeks. - Related Data Allergies/Adverse Reactions: Allergies Allergy/AdvReac Type Severity Reaction Status Date / Time cat dander Allergy Sneezing Verified 05/20/20 22:20 latex Allergy Rash Verified 03/20/18 15:39 Home Medications: Home Meds Pnv No.95/Ferrous Fum/Folic AC [ Tablet] 1 tab PO BEDTIME 05/20/20 [History] valACYclovir HCl [Valtrex] 1 tab PO BID 05/20/20 [History] Past Medical History - Past Health History Medical/Surgical History: Denies Medical/Surgical History Other Cardiovascular History: Had a ZIO patch during . Results were WNL. Genitourinary History: Reports: Other (See Below) Other Genitourinary History: Yeast in urine 03/22/2018. CHEMIST PHARMACEUTICAL History: Reports: , Other (See Below) Other OB/BYN History: IVF - Infectious Disease History Infectious Disease History: Reports: Chicken Pox Social & Family History - Family History Family Medical History: No Pertinent Family History - Caffeine Use Caffeine Use: Reports: Coffee, Soda H&P Review of Systems - Review of Systems: Review Of Systems: See Below General: Reports: No Symptoms HEENT: Reports: No Symptoms Pulmonary: Reports: No Symptoms Cardiovascular: Reports: No Symptoms Gastrointestinal: Reports: No Symptoms Genitourinary: Reports: Other (Contractions and pelvic pressure. ) Musculoskeletal: Reports: No Symptoms Skin: Reports: No Symptoms Psychiatric: Reports: No Symptoms Neurological: Reports: No Symptoms L&D Exam - Exam Exam: See Below - Vital Signs Weight: 204 lb - OB Specific Contraction Frequency (min): every 2-3min Contraction Intensity: Moderate to Strong Movement: Active Heart Tones: Present Heart Tones per Min: 130 Heart Rate (FHR) Variability: Moderate (6-25 bmp) Estimated Weight: 7lbs - Exam General: Alert, Oriented, Cooperative, Mild Distress HEENT: Conjunctiva Clear, Mucosa Moist & [place] Neck: Supple, Trachea Midline Lungs: Normal Respiratory Effort GI/Abdominal Exam: Soft, Non-Tender, No Distention Genitourinary: Normal external exam, Other (No active HSV lesions seen. Pelvic exam /+1 with bulging membranes. AROM with clear fluid.) Back Exam: Normal Inspection Extremities: Normal Inspection, Normal Range of Motion, Non-Tender, No Pedal [place] ma Skin: Warm, Dry, Intact Neurological: Cranial Nerves Intact Psychiatric: Alert, Normal Affect, Normal Mood - Patient Data Lab Results Last 24 hrs: Laboratory Results - last 24 hr 05/20/20 05/20/20 05/20/20 Range/Units 21:45 21:45 21:51 WBC 12.18 H (4.0-11.0) K/uL RBC 4.11 L (4.30-5.90) M/uL Hgb 12.6 (12.0-16.0) g/dL Hct 36.7 (36.0-46.0) % MCV 89.3 (80.0-98.0) fL MCH 30.7 (27.0-32.0) pg MCHC 34.3 (31.0-37.0) g/dL RDW Std Deviation 45.1 (28.0-62.0) fl RDW Coeff of Sharmila 14 (11.0-15.0) % Plt Count 272 (150-400) K/uL MPV 11.40 (7.40-12.00) fL Nucleated RBC % 0.0 /100WBC Nucleated RBCs # 0 K/uL SARS-CoV-2 RNA (MARCIO) NEGATIVE (NEGATIVE) Blood Type A NEGATIVE Antibody Screen NEGATIVE Result Diagrams: 05/20/20 21:45 Problem List Initiated/Reviewed/Updated: Yes Orders Last 24hrs: Active Orders 24 hr Category Date Time Status Patient Status [ADT] Routine ADT 05/20/20 23:39 Ordered Cooling Warming Measures [RC] ASDIRECTED Care 05/20/20 23:41 Ordered Non Stress Test [RC] PER UNIT ROUTINE Care 05/20/20 20:14 Active May Shower [RC] ASDIRECTED Care 05/20/20 23:39 Ordered Up ad Sandhya [RC] ASDIRECTED Care 05/20/20 20:14 Active Up ad Sandhya [RC] ASDIRECTED Care 05/20/20 23:39 Ordered Vaginal Exam [RC] Click to Edit Care 05/20/20 20:14 Active Vital Signs [RC] PER UNIT ROUTINE Care 05/20/20 20:14 Active Vital Signs [RC] PER UNIT ROUTINE Care 05/20/20 23:39 Ordered HEMOGLOBIN/HEMATOCRIT,HH [HEME] Timed Lab 05/21/20 05:11 Ordered RHIG WORKUP, [BBK] Routine Lab 05/20/20 23:39 Ordered RPR (SYPHILIS SERO) W/ RFLX [REF] Routine Lab 05/20/20 21:45 Received Acetaminophen [Tylenol Extra Strength] Med 05/20/20 23:39 Ordered 1,000 mg PO Q4H PRN Acetaminophen [Tylenol Extra Strength] Med 05/20/20 23:39 Ordered 500 mg PO Q4H PRN Benzocaine/Menthol [Dermoplast Pain Relief 20%-0.5% Med 05/20/20 23:39 Ordered [place]] 78 gm TOP ASDIRECTED PRN Docusate Sodium [Colace] Med 05/20/20 23:39 Ordered 100 mg PO BID PRN Ibuprofen [Motrin] Med 05/20/20 23:39 Ordered 400 mg PO Q4H PRN Ibuprofen [Motrin] Med 05/20/20 23:39 Ordered 800 mg PO Q6H PRN Lanolin [Lansinoh HPA] Med 05/20/20 23:39 Ordered See Dose Instructions TOP ASDIRECTED PRN Sodium Chloride 0.9% [Normal Saline] Med 05/20/20 21:39 Active 10 ml IV ASDIRECTED PRN Sodium Chloride 0.9% [Saline Flush] Med 05/20/20 21:39 Active 10 ml FLUSH ASDIRECTED PRN Sodium Chloride 0.9% [Saline Flush] Med 05/20/20 21:39 Active 2.5 ml FLUSH ASDIRECTED PRN bisacodyL [Dulcolax] Med 05/20/20 23:39 Ordered 10 mg RECTAL ONETIME PRN oxyCODONE Med 05/20/20 23:39 Ordered 5 mg PO Q2H PRN witch Rand [Tucks] Med 05/20/20 23:39 Ordered 1 pad TOP ASDIRECTED PRN Assess Lochia [WOMSER] Per Unit Routine Oth 05/20/20 23:39 Ordered Assess Uterine Involution [WOMSER] Per Unit Routine Oth 05/20/20 23:39 Ordered Ice Therapy [OM.PC] Per Unit Routine Oth 05/20/20 23:40 Ordered Perineal Care [OM.PC] Per Unit Routine Oth 05/20/20 23:40 Ordered Peripheral IV Discontinue [OM.PC] Routine Oth 05/20/20 23:39 Ordered Peripheral IV Insertion Adult [OM.PC] Routine Oth 05/20/20 21:39 Ordered Sitz Bath [OM.PC] Per Unit Routine Oth 05/20/20 23:40 Ordered Resuscitation Status Routine Resus Stat 05/20/20 20:37 Ordered Medication Orders Acetaminophen (Acetaminophen 500 Mg Tab) 500 mg PO Q4H PRN PRN Reason: Pain Acetaminophen (Acetaminophen 500 Mg Tab) 1,000 mg PO Q4H PRN PRN Reason: Pain Benzocaine/Menthol (Benzocaine/Menthol 20%-0.5% [place] 78 Gm Cannister) 78 gm TOP ASDIRECTED PRN PRN Reason: Perineal Comfort Measure Bisacodyl (Bisacodyl 10 Mg Supp) 10 mg RECTAL ONETIME PRN PRN Reason: Constipation Docusate Sodium (Docusate Sodium 100 Mg Cap) 100 mg PO BID PRN PRN Reason: Constipation Emollient Ointment (Lanolin 100% Cream 7 Gm Tube) 0 gm TOP ASDIRECTED PRN PRN Reason: Sore Nipples Ibuprofen (Ibuprofen 400 Mg Tab) 400 mg PO Q4H PRN PRN Reason: Pain Ibuprofen (Ibuprofen 800 Mg Tab) 800 mg PO Q6H PRN PRN Reason: Pain Oxycodone HCl (Oxycodone 5 Mg Tab) 5 mg PO Q2H PRN PRN Reason: Pain Sodium Chloride (Sodium Chloride 0.9% 10 Ml Syringe) 10 ml FLUSH ASDIRECTED PRN PRN Reason: Keep Vein Open Sodium Chloride (Sodium Chloride 0.9% 2.5 Ml Syringe) 2.5 ml FLUSH ASDIRECTED PRN PRN Reason: Keep Vein Open Sodium Chloride (Sodium Chloride 0.9% 10 Ml Sdv) 10 ml IV ASDIRECTED PRN PRN Reason: IV Use Witch Rand (Witch Rand Medicated Pads 40/Jar) 1 pad TOP ASDIRECTED PRN PRN Reason: comfort care Assessment/Plan Comment:: 34yo @40w0d presenting with labor, reassuring maternal and status. Will admit at this time. 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 Expectant management.
[2020-05-21] MEDS: Ibuprofen 800 MG Tab PO PRN ×3 (01:07→18:11)
--- NOTE | 2020-05-21 02:11 | OR ---
SURGEON: Luis Alfredo Villa MD DATE OF PROCEDURE: 05/20/2020 INDICATION FOR PROCEDURE: A 34-year-old -0-0-1 at 40 weeks and 0 days, presenting in labor. The patient has been ethan at home which has become stronger and every 2 to 3 minutes. The patient was found to be 4 cm dilated with intact membranes. Her was complicated by AMA and history of HSV-2. She has been on Valtrex for suppression since 36 weeks, no active lesions or prodromal symptoms. Otherwise had an uncomplicated . She is GBS negative. After the patient was admitted, she quickly progressed to 9 cm dilation within the next 2 hours. She was feeling increasing urge to push. AROM was performed with clear fluid, and she became fully dilated and began pushing with contractions. The baby had category 1 tracing. PREOPERATIVE DIAGNOSES: 1. Mcdonald intrauterine at 40 weeks and 0 days. 2. History of HSV-2. 3. Advanced Maternal Age POSTOPERATIVE DIAGNOSES: 1. Mcdonald intrauterine at 40 weeks and 0 days. 2. History of HSV-2. 3. Advanced Maternal Age PROCEDURE PERFORMED: Normal spontaneous vaginal delivery, repair of second degree laceration. ANESTHESIA: Local anesthesia. FINDINGS: Viable female infant. score 8 and 9. weight was 3250 g. Compound presentation with the baby's left hand. ESTIMATED BLOOD LOSS: 300 mL. DESCRIPTION OF PROCEDURE: The patient pushed with contractions for approximately 20 minutes with good descent. head delivered over intact perineum in occiput anterior position, restituted ROT. Anterior shoulder delivered easily with compound presentation of the baby's left hand. No nuchal cord was noted. The posterior shoulder and body delivered easily. The baby was placed on maternal chest and evaluated by awaiting nursery staff. The baby was pink, crying vigorously, and moving all extremities immediately after delivery. The umbilical cord was clamped and cut after 60 seconds and no longer pulsating. Umbilical cord gases were obtained. The placenta was removed with gentle traction and fundal massage. It was examined to be intact with 3-vessel cord. The vagina and perineum were examined. She was noted to have a second-degree laceration. 15 mL of 1% lidocaine with epinephrine was used for local anesthesia. After anesthesia was confirmed, a 2-0 and 3-0 Vicryl were used to repair the laceration in the usual fashion. Hemostasis was confirmed. The fundus was firm and under the umbilicus and the bleeding was light. The patient tolerated the procedure well, was given care instructions. AZALEA HAWLEY /[id number] MTDD
[2020-05-21] MEDS: Acetaminophen 500 MG Tab PO PRN ×2 (04:51→12:10)
--- NOTE | 2020-05-21 08:32 | PCM.PNPP ---
- General Info Date of Service: 05/21/20 Functional Status: Reports: Pain Controlled, Tolerating Diet, Ambulating, Urinating - Review of Systems General: Reports: Fatigue. Denies: Fever, Weakness Pulmonary: Denies: Shortness of Breath Cardiovascular: Denies: Chest Pain, Palpitations, Lightheadedness Gastrointestinal: Denies: Abdominal Pain, Nausea, Vomiting Genitourinary: Denies: Flank Pain Musculoskeletal: Reports: No Symptoms Skin: Reports: No Symptoms Neurological: Reports: No Symptoms Psychiatric: Reports: No Symptoms - General Info Date of Service: 05/21/20 - Patient Data Vital Signs - Most Recent: Last Vital Signs Temp 36.6 C 05/21/20 07:35 Pulse 62 05/21/20 07:35 Resp 15 05/21/20 07:35 BP 114/67 05/21/20 07:35 Pulse Ox 98 05/21/20 07:35 Weight - Most Recent: 92.533 kg Lab Results - Last 24 Hours: Laboratory Results - last 24 hr 05/20/20 05/20/20 05/20/20 Range/Units 00:46 21:45 21:45 WBC 12.18 H (4.0-11.0) K/uL RBC 4.11 L (4.30-5.90) M/uL Hgb 12.6 (12.0-16.0) g/dL Hct 36.7 (36.0-46.0) % MCV 89.3 (80.0-98.0) fL MCH 30.7 (27.0-32.0) pg MCHC 34.3 (31.0-37.0) g/dL RDW Std Deviation 45.1 (28.0-62.0) fl RDW Coeff of Sharmila 14 (11.0-15.0) % Plt Count 272 (150-400) K/uL MPV 11.40 (7.40-12.00) fL Nucleated RBC % 0.0 /100WBC Nucleated RBCs # 0 K/uL Cord ABG pH (7.18-7.38) Cord ABG Base Excess (-10--2) Cord VBG pH (7.25-7.45) Cord VBG Base Excess (-10--2) SARS-CoV-2 RNA (MARCIO) (NEGATIVE) Blood Type A NEGATIVE Antibody Screen NEGATIVE Rhogam Indicated NO, MOM+BABY RH NEG 05/20/20 05/20/20 05/21/20 Range/Units 21:51 22:55 05:36 WBC (4.0-11.0) K/uL RBC (4.30-5.90) M/uL Hgb 11.0 L (12.0-16.0) g/dL Hct 32.5 L (36.0-46.0) % MCV (80.0-98.0) fL MCH (27.0-32.0) pg MCHC (31.0-37.0) g/dL RDW Std Deviation (28.0-62.0) fl RDW Coeff of Sharmila (11.0-15.0) % Plt Count (150-400) K/uL MPV (7.40-12.00) fL Nucleated RBC % /100WBC Nucleated RBCs # K/uL Cord ABG pH 7.258 (7.18-7.38) Cord ABG Base Excess -5 (-10--2) Cord VBG pH 7.357 (7.25-7.45) Cord VBG Base Excess -5 (-10--2) SARS-CoV-2 RNA (MARCIO) NEGATIVE (NEGATIVE) Blood Type Antibody Screen Rhogam Indicated Med Orders - Current: Current Medications Acetaminophen (Acetaminophen 500 Mg Tab) 500 mg PO Q4H PRN PRN Reason: Pain Acetaminophen (Acetaminophen 500 Mg Tab) 1,000 mg PO Q4H PRN PRN Reason: Pain Last Admin: 05/21/20 04:51 Dose: 1,000 mg Documented by: Benzocaine/Menthol (Benzocaine/Menthol 20%-0.5% [place] 78 Gm Cannister) 78 gm TOP ASDIRECTED PRN PRN Reason: Perineal Comfort Measure Last Admin: 05/21/20 01:06 Dose: 1 tub Documented by: Bisacodyl (Bisacodyl 10 Mg Supp) 10 mg RECTAL ONETIME PRN PRN Reason: Constipation Docusate Sodium (Docusate Sodium 100 Mg Cap) 100 mg PO BID PRN PRN Reason: Constipation Emollient Ointment (Lanolin 100% Cream 7 Gm Tube) 0 gm TOP ASDIRECTED PRN PRN Reason: Sore Nipples Ibuprofen (Ibuprofen 400 Mg Tab) 400 mg PO Q4H PRN PRN Reason: Pain Ibuprofen (Ibuprofen 800 Mg Tab) 800 mg PO Q6H PRN PRN Reason: Pain Last Admin: 05/21/20 01:07 Dose: 800 mg Documented by: Oxycodone HCl (Oxycodone 5 Mg Tab) 5 mg PO Q2H PRN PRN Reason: Pain Sodium Chloride (Sodium Chloride 0.9% 10 Ml Syringe) 10 ml FLUSH ASDIRECTED PRN PRN Reason: Keep Vein Open Sodium Chloride (Sodium Chloride 0.9% 2.5 Ml Syringe) 2.5 ml FLUSH ASDIRECTED PRN PRN Reason: Keep Vein Open Sodium Chloride (Sodium Chloride 0.9% 10 Ml Sdv) 10 ml IV ASDIRECTED PRN PRN Reason: IV Use Witch Rand (Witch Rand Medicated Pads 40/Jar) 1 pad TOP ASDIRECTED PRN PRN Reason: comfort care Last Admin: 05/21/20 01:06 Dose: 1 can Documented by: Discontinued Medications Butorphanol Tartrate (Butorphanol 1 Mg/Ml Sdv) 1 mg IVPUSH Q1H PRN PRN Reason: Pain Carboprost Tromethamine (Carboprost Tromethamine 250 Mcg/1 Ml Amp) 250 mcg IM ASDIRECTED PRN PRN Reason: Post Hemorrhage Lactated Ringer's (Ringers, Lactated) 1,000 mls @ 150 mls/hr IV ASDIRECTED [facility] Last Admin: 05/20/20 21:55 Dose: 999 mls/hr Documented by: Oxytocin/Sodium Chloride (Oxytocin 30 Unit/500 Ml-Ns) 30 unit in 500 mls @ 999 mls/hr IV TITRATE [facility] Last Admin: 05/20/20 22:54 Dose: 999 mls/hr Documented by: Tranexamic Acid 1,000 mg/ (Sodium Chloride) 110 mls @ 660 mls/hr IV ONETIME PRN PRN Reason: Bleeding Lidocaine HCl (Lidocaine 1% 50 Ml Mdv) 50 ml INJECT ONETIME PRN PRN Reason: Laceration repair Last Admin: 05/20/20 23:02 Dose: 50 ml Documented by: Methylergonovine Maleate (Methylergonovine 0.2 Mg/1 Ml Amp) 0.2 mg IM ASDIRECTED PRN PRN Reason: Post Hemorrhage Misoprostol (Misoprostol 200 Mcg Tab) 200 mcg PO ONETIME PRN PRN Reason: Post Hemorrhage Nalbuphine HCl (Nalbuphine 10 Mg/1 Ml Vial) 10 mg IVPUSH Q1H PRN PRN Reason: Pain (severe 7-10) Ondansetron HCl (Ondansetron 4 Mg/2 Ml Sdv) 4 mg IVPUSH Q6H PRN PRN Reason: Nausea/Vomiting Sterile Water (Water For Irrigation,Sterile 1,000 Ml Container) 1,000 ml IRR ASDIRECTED PRN PRN Reason: delivery - Interaction Support Person: - Recovery Exam Fundal Tone: Firm Fundal Level: 1 Fingerbreadths Below Umbilicus Fundal Placement: Midline Lochia Amount: Scant, Small Lochia Color: Rubra/Red Perineum Description: Other (see below) Other Perinuem Description: 2nd degree laceration with repair. Episiotomy/Laceration: Approximated Bladder Status: Voiding - Exam General: Alert, Oriented Lungs: Normal Respiratory Effort Cardiovascular: Regular Rate, Regular Rhythm GI/Abdominal Exam: Normal Bowel Sounds, Soft, Non-Tender Extremities: Pedal Edema (trace). No: Park's Sign Skin: Warm, Dry, Intact Neurological: No New Focal Deficit Psy/Mental Status: Alert, Normal Affect, Normal Mood - Problem List & Annotations (1) Vaginal delivery SNOMED Code(s): 111022452 Code(s): O80 - ENCOUNTER FOR FULL-TERM UNCOMPLICATED DELIVERY Status: Acute Current Visit: No - Problem List Review Problem List Initiated/Reviewed/Updated: Yes - Assessment Assessment:: PPD 1 status post - Plan Plan:: Continue PP cares.
[2020-05-21] MEDS: Famotidine 20 MG Tab PO SCH (14:24)
[2020-05-22] MEDS: Famotidine 20 MG Tab PO SCH ×2 (05:07→09:57)
[2020-05-22] MEDS: Ibuprofen 800 MG Tab PO PRN (06:17)
--- NOTE | 2020-05-22 08:54 | PCM.PNPP ---
- General Info Date of Service: 05/22/20 Functional Status: Reports: Pain Controlled, Tolerating Diet, Ambulating, Urinating - Review of Systems General: Reports: No Symptoms HEENT: Reports: No Symptoms Pulmonary: Reports: No Symptoms Cardiovascular: Reports: No Symptoms Gastrointestinal: Reports: No Symptoms Genitourinary: Reports: No Symptoms Musculoskeletal: Reports: No Symptoms Skin: Reports: No Symptoms Neurological: Reports: No Symptoms Psychiatric: Reports: No Symptoms - General Info Date of Service: 05/22/20 - Patient Data Vital Signs - Most Recent: Last Vital Signs Temp 36.3 C 05/22/20 04:24 Pulse 63 05/22/20 04:24 Resp 18 05/22/20 04:24 BP 119/75 05/22/20 04:24 Pulse Ox 98 05/22/20 04:24 Weight - Most Recent: 92.533 kg Med Orders - Current: Current Medications Acetaminophen (Acetaminophen 500 Mg Tab) 500 mg PO Q4H PRN PRN Reason: Pain Acetaminophen (Acetaminophen 500 Mg Tab) 1,000 mg PO Q4H PRN PRN Reason: Pain Last Admin: 05/21/20 12:10 Dose: 1,000 mg Documented by: Benzocaine/Menthol (Benzocaine/Menthol 20%-0.5% [place] 78 Gm Cannister) 78 gm TOP ASDIRECTED PRN PRN Reason: Perineal Comfort Measure Last Admin: 05/21/20 01:06 Dose: 1 tub Documented by: Bisacodyl (Bisacodyl 10 Mg Supp) 10 mg RECTAL ONETIME PRN PRN Reason: Constipation Docusate Sodium (Docusate Sodium 100 Mg Cap) 100 mg PO BID PRN PRN Reason: Constipation Last Admin: 05/21/20 09:05 Dose: 100 mg Documented by: Emollient Ointment (Lanolin 100% Cream 7 Gm Tube) 0 gm TOP ASDIRECTED PRN PRN Reason: Sore Nipples Famotidine (Famotidine 20 Mg Tab) 20 mg PO BID TAN Last Admin: 05/22/20 05:07 Dose: Not Given Documented by: Ibuprofen (Ibuprofen 400 Mg Tab) 400 mg PO Q4H PRN PRN Reason: Pain Ibuprofen (Ibuprofen 800 Mg Tab) 800 mg PO Q6H PRN PRN Reason: Pain Last Admin: 05/22/20 06:17 Dose: 800 mg Documented by: Oxycodone HCl (Oxycodone 5 Mg Tab) 5 mg PO Q2H PRN PRN Reason: Pain Sodium Chloride (Sodium Chloride 0.9% 10 Ml Syringe) 10 ml FLUSH ASDIRECTED PRN PRN Reason: Keep Vein Open Sodium Chloride (Sodium Chloride 0.9% 2.5 Ml Syringe) 2.5 ml FLUSH ASDIRECTED PRN PRN Reason: Keep Vein Open Sodium Chloride (Sodium Chloride 0.9% 10 Ml Sdv) 10 ml IV ASDIRECTED PRN PRN Reason: IV Use Witch Rand (Witch Rand Medicated Pads 40/Jar) 1 pad TOP ASDIRECTED PRN PRN Reason: comfort care Last Admin: 05/21/20 01:06 Dose: 1 can Documented by: Discontinued Medications Butorphanol Tartrate (Butorphanol 1 Mg/Ml Sdv) 1 mg IVPUSH Q1H PRN PRN Reason: Pain Carboprost Tromethamine (Carboprost Tromethamine 250 Mcg/1 Ml Amp) 250 mcg IM ASDIRECTED PRN PRN Reason: Post Hemorrhage Lactated Ringer's (Ringers, Lactated) 1,000 mls @ 150 mls/hr IV ASDIRECTED [facility] Last Admin: 05/20/20 21:55 Dose: 999 mls/hr Documented by: Oxytocin/Sodium Chloride (Oxytocin 30 Unit/500 Ml-Ns) 30 unit in 500 mls @ 999 mls/hr IV TITRATE [facility] Last Admin: 05/20/20 22:54 Dose: 999 mls/hr Documented by: Tranexamic Acid 1,000 mg/ (Sodium Chloride) 110 mls @ 660 mls/hr IV ONETIME PRN PRN Reason: Bleeding Lidocaine HCl (Lidocaine 1% 50 Ml Mdv) 50 ml INJECT ONETIME PRN PRN Reason: Laceration repair Last Admin: 05/20/20 23:02 Dose: 50 ml Documented by: Methylergonovine Maleate (Methylergonovine 0.2 Mg/1 Ml Amp) 0.2 mg IM ASDIRECTED PRN PRN Reason: Post Hemorrhage Misoprostol (Misoprostol 200 Mcg Tab) 200 mcg PO ONETIME PRN PRN Reason: Post Hemorrhage Nalbuphine HCl (Nalbuphine 10 Mg/1 Ml Vial) 10 mg IVPUSH Q1H PRN PRN Reason: Pain (severe 7-10) Ondansetron HCl (Ondansetron 4 Mg/2 Ml Sdv) 4 mg IVPUSH Q6H PRN PRN Reason: Nausea/Vomiting Sterile Water (Water For Irrigation,Sterile 1,000 Ml Container) 1,000 ml IRR ASDIRECTED PRN PRN Reason: delivery - Infant Interaction Support Person: - Recovery Exam Fundal Tone: Firm Fundal Level: 1 Fingerbreadths Below Umbilicus Fundal Placement: Midline Lochia Amount: Scant Lochia Color: Rubra/Red Perineum Description: Other (see below) Other Perinuem Description: 2nd degree laceration with repair. Episiotomy/Laceration: Approximated Bladder Status: Voiding - Exam General: Alert, Oriented Lungs: Normal Respiratory Effort Cardiovascular: Regular Rate, Regular Rhythm GI/Abdominal Exam: Normal Bowel Sounds, Soft, Non-Tender Extremities: Pedal Edema (1+). No: Park's Sign Skin: Warm, Dry, Intact Neurological: No New Focal Deficit Psy/Mental Status: Alert, Normal Affect, Normal Mood - Problem List & Annotations (1) Vaginal delivery SNOMED Code(s): 246483794 Code(s): O80 - ENCOUNTER FOR FULL-TERM UNCOMPLICATED DELIVERY Status: Acute Current Visit: No - Problem List Review Problem List Initiated/Reviewed/Updated: Yes - My Orders Last 24 Hours: My Active Orders 05/21/20 14:00 Famotidine [Pepcid] 20 mg PO BID 05/22/20 08:52 Ready for Discharge [RC] PER UNIT ROUTINE - Assessment Assessment:: PPD 2 status post - Plan Plan:: Doing well overall. VS are stable. Ready to go home.Discharge instructions reviewed. Follow up at [facility] 4 weeks. Discharge to home today.
== END 2020-05-22 12:16 | disposition home or self-care (01) | DRG 807 ==
LOC: MW.OB 20:03 → MW.OBCHECK 20:03 → MW.OB 21:39 → OBSVTOIN 22:53 → MW.OB 05-21 02:43
PROVIDERS: ADMIT Obstetrics & Gynecology; ATTEND Obstetrics & Gynecology
PROC: 10E0XZZ Delivery of Products of Conception, External Approach (ICD-10-PCS; principal; 2020-05-20)
PROC: 0KQM0ZZ Repair Perineum Muscle, Open Approach (ICD-10-PCS; 2020-05-20)
PROC: 10907ZC Drainage of Amniotic Fluid, Therapeutic from Products of Conception, Via Natural or Artificial Opening (ICD-10-PCS; 2020-05-20)
DX: O48.0 Post-term pregnancy (principal); Z37.0 Single live birth; Z3A.40 40 weeks gestation of pregnancy; Z91.040 Latex allergy status; Z91.09 Other allergy status, other than to drugs and biological substances; O70.1 Second degree perineal laceration during delivery; Z20.822 Contact with and (suspected) exposure to COVID-19
CPT/HCPCS: 36415; 59025; 59409; 82803; 85014; 85018; 85027; 86592; 86850; 86900; 86901; A9270-GY; J2001; J2590; J7120; U0002